=== PATIENT | male | born 1945 | race Caucasian/White ===

== ENCOUNTER 2018-09-29 20:59 | Inpatient (IN) | payer MEDICARE ==
[~2018-09-29] VITALS: Ht 193 cm; Wt 108.9 kg
[~2018-09-29 20:59] MED LIST: ASPIRIN81 MG PO; BACLOFEN20 M1 PO; BUSPAR5 MG PO; CELEXA20 MG PO; CLARITIN 10 MG10 MG PO; EFFEXOR XR150 MG PO; HALDOL5 MG PO; HYDROCODON-ACE1 EAC7 PO; LEVAQUIN500 MG PO; LIPITOR20 MG PO; MUCINEX DM ER1 EAC1 PO; NEURONTIN 300300 MG PO; PLAVIX75 MG PO; PRILOSEC20 MG PO; TOPROL XL25 MG; TOPROL XL25 MG PO; TYLENOL W/CODEI1 TAB PO; ULTRAM50 MG PO; VITAMIN D250000 UNIT PO; XOPENEX 0.0.63 MG/3 UPD; ZYPREXA7.5 MG PO
[2018-09-29 21:36] LABS: BASOPHILS 0.4 % (0-2); EOSINOPHILS 1.3 % (0-7); HEMATOCRIT 39.9 % (42.0-54.0); IMMATURE GRANULOCYTES 0.3 % (0-5); LYMPHOCYTES 12.2 % (15-50); MCH 30.6 pg (26.0-34.0); MCHC 35.1 g/dL (31.0-37.0); MCV 87.1 fL (80.0-100.0); MEAN PLATELET VOLUME 9.9 fL (7.4-10.4); NEUTROPHILS 74.8 % (40-80); RBC 4.58 10x6/uL (4.20-6.10); RDW 13.8 % (11.5-14.5); WBC 10.4 10x3/uL (4.8-10.8)
[2018-09-29 21:46] LABS: APTT 27.9 SECONDS (22.8-39.4); INR 1.07 (0.85-1.17); PROTIME 13.4 SECONDS (11.6-15.0)
[2018-09-29 21:52] LABS: ALBUMIN 3.9 g/dL (3.4-5.0); ALKALINE PHOSPHATASE 57 U/L (46-116); ALT (SGPT) 18 U/L (10-68); BILIRUBIN - TOTAL 1.29 mg/dL (0.2-1.3); CALC OSMOLALITY 295 mosm/kg (275-300); CALCIUM 9.1 mg/dL (8.5-10.1); CARBON DIOXIDE 26.9 mmol/L (21.0-32.0); CHLORIDE - SERUM 103 mmol/L (98-107); GLUCOSE 203 mg/dL (74-106); POTASSIUM - SERUM 4.5 mmol/L (3.5-5.1); PROTEIN - SERUM 7.4 g/dL (6.4-8.2); SODIUM 142 mmol/L (136-145); UREA NITROGEN 32 mg/dL (7-18); eGFR NON AFRICAN AMERICAN 35 mL/min (90-120)
[2018-09-29 22:11] LABS: CREATINE KINASE 521 UL (21-232); LIPASE 117 U/L (73-393); MAGNESIUM - SERUM 1.3 mg/dL (1.8-2.4); PRO BNP 193 pg/mL (0-125); TROPONIN-I 0.044 ng/mL (0.000-0.060)
[2018-09-29 22:16] LABS: PLATELET COUNT 186 10x3/uL (130-400)
[2018-09-29 22:38] LABS: APPEARANCE HAZY (CLEAR); BILIRUBIN NEGATIVE (NEGATIVE); COLOR YELLOW (YELLOW); GLUCOSE NEGATIVE (NEGATIVE); KETONE NEGATIVE (NEGATIVE); NITRITE NEGATIVE (NEGATIVE); PROTEIN 1+ mg/dL (NEGATIVE); UROBILINOGEN NORMAL (NORMAL)
[2018-09-29 22:41] LABS: AMORPHOUS SEDIMENT >1+ /lpf (NONE SEEN); BACTERIA MODERATE /hpf (NONE SEEN); RED CELLS - URINE 0-5 /hpf (0-5); WHITE CELLS - URINE 0-5 /hpf (0-5)
--- NOTE | 2018-09-29 22:56 | NUR ---
PT'S IV ROCEPHIN FINISHED.
[2018-09-29 23:58] VITALS: BP 128/44; BMI 29.2
[2018-09-30] MEDS ORDERED: ADVAIR 250/501 DISK INH (00:02)
[2018-09-30] MEDS ORDERED: BACLOFEN10 MG PO (00:03)
[2018-09-30] MEDS ORDERED: CYMBALTA60 MG PO (00:22)
[2018-09-30] MEDS ORDERED: COLACE100 MG PO (00:23)
[2018-09-30] MEDS ORDERED: GABAPENTIN100 MG PO (00:24)
[2018-09-30] MEDS ORDERED: GLUCOTROL XL 5 M5 MG PO (00:25)
[2018-09-30] MEDS ORDERED: GLUCAGEN1 MG/VIAL SC (00:27)
[2018-09-30] MEDS ORDERED: INSTA-GLUCOSE31 GM PO (00:28)
[2018-09-30] MEDS ORDERED: LEVEMIR IN100 UNITS/ SC ×2 (00:32→00:33)
[2018-09-30] MEDS ORDERED: MELATONIN 3 MG1 TAB PO (00:34)
[2018-09-30] MEDS ORDERED: MOBIC7.5 MG PO (00:35)
[2018-09-30] MEDS ORDERED: NOVOLOG100 UNIT/1 SC (00:36)
[2018-09-30] MEDS ORDERED: HEALTHYLAX17 GM PO (00:37)
[2018-09-30] MEDS ORDERED: PROTONIX40 MG PO (00:38)
[2018-09-30] MEDS ORDERED: VITAMIN D31000 UNIT PO (00:40)
[2018-09-30] MEDS ORDERED: ZYRTEC10 MG PO (00:41)
--- NOTE | 2018-09-30 00:48 | NUR ---
PT ARRIVED TO THE FLOOR. VERY SHORT OF BREATH. RESPIRATIONS 22 PT ON 4LO2 NASAL CANNULA. LUNG SOUNDS DIMINISHED AND SOME WHEEZING EXPIRATORY. 20G LT HAND NS @125. BOWEL SOUNDS ACTIVE. TELE MONITOR NOT AVAILABLE AT THIS TIME. WILL CONTINUE PLAN OF CARE. CALL LIGHT IN REACH. BED LOWERED AND LOCKED. MANNIE ALARM ON. YELLOW GOWN ON AND YELLOW WRIST BAND. BED RAILS UP X3.
[2018-09-30 02:49] VITALS: BP 128/44
[2018-09-30 04:42] LABS: BASOPHILS 0.3 % (0-2); EOSINOPHILS 0.2 % (0-7); HEMATOCRIT 36.3 % (42.0-54.0); HEMOGLOBIN 12.4 g/dL (13.5-17.5); IMMATURE GRANULOCYTES 0.2 % (0-5); LYMPHOCYTES 11.9 % (15-50); MCH 30.2 pg (26.0-34.0); MCHC 34.2 g/dL (31.0-37.0); MCV 88.3 fL (80.0-100.0); MEAN PLATELET VOLUME 10.1 fL (7.4-10.4); MONOCYTES 12.1 % (2-11); NEUTROPHILS 75.3 % (40-80); PLATELET COUNT 164 10x3/uL (130-400); RBC 4.11 10x6/uL (4.20-6.10); RDW 13.7 % (11.5-14.5)
[2018-09-30 05:18] LABS: ALBUMIN 3.1 g/dL (3.4-5.0); ANION GAP 15.3 mmol/L (8-16); BILIRUBIN - TOTAL 0.98 mg/dL (0.2-1.3); CALCIUM 8.5 mg/dL (8.5-10.1); CARBON DIOXIDE 24.1 mmol/L (21.0-32.0); CREATININE - SERUM 2.1 mg/dL (0.6-1.3); POTASSIUM - SERUM 4.4 mmol/L (3.5-5.1); PROTEIN - SERUM 6.2 g/dL (6.4-8.2)
[2018-09-30 06:29] VITALS: BP 136/88
--- NOTE | 2018-09-30 07:18 | NUR ---
PT RESTING IN BED WITH EYES CLOSED. NO ACUTE DISTRESS NOTED. OPENS EYES WITH NAME CALLED. DENIES PAIN AT THIS TIME. O2 @ 4L NC IN PLACE. IV TO LEFT HAND WITH NS @ 125ML/HR INFUSING VIA PUMP. SITE WITHOUT REDNESS OR EDEMA. DENIES PAIN AT THIS TIME. CL WITHIN REACH. FALL PRECAUTIONS IN PLACE. DENIES FURTHER NEEDS AT THIS TIME. ENCOURAGED TO CALL WITH NEEDS. CONTINUE POC
[2018-09-30 09:45] VITALS: Ht 193 cm; Wt 108.9 kg
[2018-09-30 10:26] VITALS: BP 102/67
[2018-09-30 12:43] VITALS: BP 116/65
[2018-09-30 18:35] VITALS: BP 110/67
--- NOTE | 2018-09-30 19:30 | NUR ---
A&O X 3, REORIENTED TO SITUATION. DENIES PAIN. AMBULATORY. IV TO LEFT WRIST INFUSING. PT REQUESTS BED CHANGED. DENIES FURTHER NEEDS, WILL CONTINUE TO MONITOR.
[2018-09-30 20:59] VITALS: BP 133/69
[2018-10-01 01:02] VITALS: BP 128/66
--- NOTE | 2018-10-01 03:04 | NUR ---
I have reviewed this patient and I concur with the Shift Assessment completed by the Licensed Practical Nurse today this shift.
[2018-10-01 04:55] VITALS: BP 91/42
[2018-10-01 05:12] LABS: BASOPHILS 0.5 % (0-2); EOSINOPHILS 3.5 % (0-7); HEMATOCRIT 32.8 % (42.0-54.0); IMMATURE GRANULOCYTES 0.2 % (0-5); LYMPHOCYTES 20.9 % (15-50); MCH 29.8 pg (26.0-34.0); MCHC 33.5 g/dL (31.0-37.0); MCV 88.9 fL (80.0-100.0); MONOCYTES 10.4 % (2-11); NEUTROPHILS 64.5 % (40-80); PLATELET COUNT 149 10x3/uL (130-400); RBC 3.69 10x6/uL (4.20-6.10); RDW 13.9 % (11.5-14.5)
[2018-10-01 05:13] LABS: WBC 8.2 10x3/uL (4.8-10.8)
[2018-10-01 05:32] LABS: CALCIUM 7.9 mg/dL (8.5-10.1)
[2018-10-01 05:37] LABS: CREATININE - SERUM 1.5 mg/dL (0.6-1.3)
--- NOTE | 2018-10-01 07:05 | NUR ---
PT RESTING IN BED WATCHING TV. NO ACUTE DISTRESS NOTED AT THIS TIME. O2 @ 2L NC IN PLACE. PT DOES BECOME SOB WITH EXCERTION. IV TO LEFT HAND WITH 1/2 NS @ 100ML/HR INFUSING VIA PUMP. SITE WITHOUT REDNESS OR EDEMA. DENIES PAIN AT THIS TIME. CL WITHIN REACH. ENCOURAGED TO CALL WITH NEEDS. CONTINUE POC
[2018-10-01 08:07] VITALS: BP 112/68
--- NOTE | 2018-10-01 12:30 | NUR ---
PT DISLODGED IV TO LEFT HAND. CATH INTACT. RESITED IV TO RIGHT FOREARM 22G X 2 STICKS. PT REBECCA WELL. GOOD BLOOD RETURN, EASILY FLUSHED. TAPED IN PLACE
[2018-10-01 13:13] VITALS: BP 116/63
[2018-10-01] MEDS ORDERED: ROCEPHIN 1 GM/D51 G1 IV (14:27)
[2018-10-01] MEDS ORDERED: ZITHROMAX 500M500 MG IV (14:27)
--- NOTE | 2018-10-01 15:40 | NUR ---
REPORT CALLED TO [facility] FOR PT D/C. SPOKE WITH EDUARDO TO GIVE REPORT. INSTRUCTED STAFF PT RETURNING WITH HEP LOC TO RIGHT FOREARM FOR CONTINUED IV INFUSION X 2 DAYS AND IV ANTIBIOTICS
--- NOTE | 2018-10-01 15:45 | MORECARE ---
CASE MANAGEMENT DISCHARGE SUMMARY PATIENT: SHAQUILLE HILL UNIT: [id number] ADM DATE: 09/29/18 AGE: 73 : 45 SEX: M ROOM/BED: D.2203 AUTHOR: DEVEN ELDER PHYSICIAN: REFERRING PHYSICIAN: MARIAELENA BLACKMON MD DATE OF SERVICE: 10/01/18 Discharge Plan Patient Name: SHAQUILLE HILL Facility: [facility]:Lee : 1945 Planned Disposition: Nursing Facility [facility] Cert Anticipated Discharge Date: Discharge Date: Expected LOS: Initial Reviewer: [email or web address] Initial Review Date: 09/29/2018 Generated: 10/01/18 4:44 pm Comments DCP- Discharge Planning Updated by [email or web address]: Humaira Perrin on 10/01/18 2:[address] Patient is being [place] [facility] [place] [facility]. He will transfer via ems per [facility] home request and they stated (Jigna) stated that EMS should bill to [facility] External Providers External Provider: [facility] Next Contact Date: Service Request Date: Service Type: Resolution: Reviewer: Comments: Patient Name: SHAQUILLE HILL Page [phone] at 1545 All edits/amendments must be made on the electronic document DICTATION DATE: 10/01/18 1544 ANALYTICAL LEAD: CHIKIS 10/01/18 1544 RPT#: [id number] DC DATE: STATUS: ADM IN [facility] [address] [place] [address] END OF REPORT
--- NOTE | 2018-10-01 15:45 | NUR ---
D/C PAPERS PROVIDED TO PT FOR SIGNATURE. DISCUSSED MEDICATIONS TO BE CONTINUED. DENIES QUESTIONS AT THIS TIME.
--- NOTE | 2018-10-01 16:30 | NUR ---
PT TRANSFERED TO [facility] VIA AMBULANCE. ALL PERSONAL BELONGINGS TAKEN WITH PT
== END 2018-10-01 17:29 | DRG 194 ==
LOC: D.ER 20:59 → D.MS 21:53
PROVIDERS: Family Medicine; ADMIT Legal Medicine; ATTEND Legal Medicine
DX: J18.1 Lobar pneumonia, unspecified organism (principal); J90 Pleural effusion, not elsewhere classified; D72.829 Elevated white blood cell count, unspecified; N28.9 Disorder of kidney and ureter, unspecified; F03.90 Unspecified dementia, unspecified severity, without behavioral disturbance, psychotic disturbance, mood disturbance, and anxiety; E11.9 Type 2 diabetes mellitus without complications; D64.9 Anemia, unspecified